=== PATIENT | male | born 1955 | race Hispanic/Latino ===

== ENCOUNTER 2018-06-30 07:31 | Observation (INO) | payer SELFPAY ==
[2018-06-30 07:52] LABS: #Lymphocytes 1.8 thou/uL (1.20-3.40); #Monocytes 0.3 thou/uL (0.11-0.59); #Neutrophils 4.9 thou/uL (1.40-6.50); %Basophils 0.1 % (0.0-1.0); %Eosinophils 0.4 % (0.0-10.0); %Lymphocytes 25.1 % (21.0-51.0); %Monocytes 4.9 % (0.0-10.0); %Neutrophils 69.6 % (42.0-75.0); Hemoglobin 9.1 g/dL (14.0-18.0); Mean Corpuscular HGB CONC 33.4 g/dL (32.0-36.0); Mean Corpuscular Hemoglobin 30.8 pg (27.0-31.0); Mean Corpuscular Volume 92.2 fL (78.0-98.0); Mean Platelet Volume 8.6 fL (7.4-10.4); Platelet Count 180 thou/uL (130-400); RBC Distribution Width 11.9 % (11.5-14.5); Red Blood Cell (RBC) Count 2.96 mill/uL (4.70-6.10); White Blood Cell (WBC) Count 7.1 thou/uL (4.8-10.8)
[2018-06-30 08:16] LABS: ALT (SGPT) 11 U/L (8-55); AST (SGOT) 12 U/L (5-34); Albumin 3.5 g/dL (3.4-4.8); Alkaline Phosphatase 44 U/L (40-150); Anion Gap 10 mmol/L (10-20); BUN (Urea Nitrogen) 48 mg/dL (8.4-25.7); Bilirubin, Total 0.4 mg/dL (0.2-1.2); Calc. Creatinine Clearance 0 mL/min (70-130); Calcium 8.7 mg/dL (7.8-10.44); Carbon Dioxide 26 mmol/L (23-31); Chloride 105 mmol/L (98-107); Estimated GFR-MDRD 64; Globulin 2.4 g/dL (2.4-3.5); Glucose 293 mg/dL (80-115); Potassium 4.7 mmol/L (3.5-5.1); Protein, Total 5.9 g/dL (5.8-8.1); Sodium 136 mmol/L (136-145)
--- NOTE | 2018-06-30 08:52 | RAD ---
PORTABLE CHEST: HISTORY: Syncope. FINDINGS: Heart size and mediastinum are within normal limits. Lungs are clear of infiltrates. No significant bony findings. IMPRESSION: No active intrathoracic disease. POS: [facility]
[2018-06-30 09:57] LABS: Bilirubin Negative (Negative); Blood, Urine Negative (Negative); Clarity CLEAR (Clear); Glucose, Urine (Dipstick) >=1000 mg/dL (Negative); Leukocyte Negative (Negative); Nitrite Negative (Negative); Protein, Urine (Dipstick) Negative (Neg-Trace); Urobilinogen 0.2 mg/dL (0.2-1.0); pH, Urine 5.5 (5.0-9.0)
--- NOTE | 2018-06-30 11:54 | PDOC.FPRHP ---
- History of Present Illness Chief Complaint: Syncope History of Present Illness: 62 yo male presents for evaluation after multiple falls at home. His states that he got up in the middle of the night to use the bathroom. She then heard some noise and found him on the ground "all sweaty." She got him back to bed and checked his glucose which was 309. She then gave him insulin and a tall glass of water. She states that he did not want to go to the doctor and wanted to go to work. He was able to get up and get ready for work, but as he was about to leave he stood up and fell backward again. She then called her daughter to help him get up and they called EMS. Patient was in his normal state of health up until last night. He denied chest pain, sob, unilateral weakness, headaches, or n/v/d. No other complaints. ED Course: 3L NS - Allergies/Adverse Reactions Allergies Allergy/AdvReac Type Severity Reaction Status Date / Time No Known Drug Allergies Allergy Unknown Verified 11/10/12 04:39 - Home Medications Medication Instructions Recorded Confirmed Type Insulin NPH Hum/Reg Insulin HM 40 unit SC BID- 10/23/14 06/30/18 History [Novolin 70/30] Lisinopril 20 mg PO DAILY 10/23/14 06/30/18 History Pravastatin Sodium 40 mg PO 10/23/14 06/30/18 History glipiZIDE [glipiZIDE ER] 5 mg PO QAM- 10/23/14 06/30/18 History metFORMIN HCl 1,000 mg PO BID- 10/23/14 06/30/18 History - History PMHx: Type II DM, HTN, HLD PSHx: NONE FHx: Diabetes Social: Denies alcohol or drug use. Patient is an occasional tobacco user. - Review of Systems General: denies: fever/chills, weight/appetite/sleep changes Eyes: denies: eye pain, vision changes ENT: denies: nasal congestion, rhinorrhea Respiratory: denies: cough, shortness of breath Cardiovascular: denies: chest pain, palpitation Gastrointestinal: denies: nausea, vomiting, diarrhea, constipation Skin: denies: rashes, lesions Musculoskeletal: denies: pain, tenderness, stiffness, swelling, arthritis/ arthralgias Neurological: reports: syncope, weakness. denies: numbness, seizure Psychological: denies: anxiety, depression - Vital signs BP: 129/62 HR: 85 RR: 16 Tmax: 98.0 Pox: 99% on RmAir Wt: 98.88 kg - Physical Exam Constitutional: NAD, awake, alert and oriented HEENT: normocephalic and atraumatic, PERRLA, grossly normal vision, TM's clear and intact, grossly normal hearing, normal nasal mucosa, MMM, oropharynx clear Neck: supple, trachea midline Chest: no-tender to palpation Heart: RRR, normal S1/S2, no murmurs/rubs/gallops Lungs: CTAB, no respiratory distress, good air movement, no wheezing Abdomen: soft, bowel sounds present, no masses/distention -Abdomen: mildly tender to RLQ Musculoskeletal: normal structure, normal tone Neurological: no focal deficit, CN II-XII intact, normal sensation Skin: no rash/lesions, good turgor, capillary refill <2 seconds Heme/Lymphatic: no unusual bruising or bleeding, no purpura Psychiatric: normal mood and affect, good judgment and insight, intact recent and remote memory FMR H&P: Results - Labs Result Diagrams: 06/30/18 07:45 06/30/18 07:45 Lab results: WBC 7.1 thou/uL (4.8-10.8) 06/30/18 07:45 Hgb 9.1 g/dL (14.0-18.0) L 06/30/18 07:45 Hct 27.3 % (42.0-52.0) L 06/30/18 07:45 MCV 92.2 fL (78.0-98.0) 06/30/18 07:45 Plt Count 180 thou/uL (130-400) 06/30/18 07:45 Neutrophils % 69.6 % (42.0-75.0) 06/30/18 07:45 Sodium 136 mmol/L (136-145) 06/30/18 07:45 Potassium 4.7 mmol/L (3.5-5.1) 06/30/18 07:45 Chloride 105 mmol/L (98-107) 06/30/18 07:45 Carbon Dioxide 26 mmol/L (23-31) 06/30/18 07:45 BUN 48 mg/dL (8.4-25.7) H 06/30/18 07:45 Creatinine 1.15 mg/dL (0.7-1.3) 06/30/18 07:45 Glucose 293 mg/dL (80-115) H 06/30/18 07:45 Calcium 8.7 mg/dL (7.8-10.44) 06/30/18 07:45 Total Bilirubin 0.4 mg/dL (0.2-1.2) 06/30/18 07:45 AST 12 U/L (5-34) 06/30/18 07:45 ALT 11 U/L (8-55) 06/30/18 07:45 Alkaline Phosphatase 44 U/L (40-150) 06/30/18 07:45 B-Natriuretic Peptide Less than 10.0 pg/mL (0-100) 06/30/18 07:45 Serum Total Protein 5.9 g/dL (5.8-8.1) 06/30/18 07:45 Albumin 3.5 g/dL (3.4-4.8) 06/30/18 07:45 Urine Ketones 15 mg/dL (Negative) H 06/30/18 Unknown Urine Blood Negative (Negative) 06/30/18 Unknown Urine Nitrite Negative (Negative) 06/30/18 Unknown Ur Leukocyte Esterase Negative (Negative) 06/30/18 Unknown - EKG Interpretation EK lead EKG shows normal sinus rhythm, Rate (beats per minute): 80, with no ectopics, Conduction normal, ST segments normal, T waves normal, [place] normal. 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 (4) Hyperlipidemia Current Visit: No Status: Chronic Code(s): E78.5 - HYPERLIPIDEMIA, UNSPECIFIED (5) Hypertension Current Visit: No Status: Chronic Code(s): I10 - ESSENTIAL (PRIMARY) HYPERTENSION - Plan (1) Autonomic neuropathy - Likely secondary to DM - Orthostatic vital signs in ED positive - IVF - Fall precautions (2) Syncope - Likely secondary to above - CT head WO contrast pending - ECHO pending - Fall precautions (3) Type 2 diabetes mellitus treated with insulin - Last HgbA1c in clinic in 12/2017 was 9.0 - Accuchecks - Continue home regimen - Will need close outpatient follow up (4) Hyperlipidemia - Continue home meds (5) Hypertension - Hold home meds for now - Will monitor BP for re-initation as needed. CODE STATUS: FULL CODE PCP: Dr. Wilmar Lombardo, Disposition: Stable, will admit to Telemetry Observation for further evaluation.
--- NOTE | 2018-06-30 12:56 | HP ---
I have examined the patient. I have discussed the case with Dr. Jimmy Montes De Oca and agree with his assessment and plan. HISTORY OF PRESENT ILLNESS: Mr. Waller is a pleasant 62-year-old man with an at least 20 year history of type 2 diabetes. He got up during the night to go the restroom when he had a presyncopal episode. His heard him fall and found him on the ground, "all sweaty." His glucose at that time was 309. He felt better and wanted to go to work the next day. He again was rising to get up to go to work when he again had another syncopal or presyncopal episode lasting a few seconds. EMS was called, he was transported to the ER. I examined him there later. PHYSICAL EXAMINATION: GENERAL: When I examined the patient, he was awake, alert, no acute distress. VITAL SIGNS: His blood pressure was normal. Pulse rate normal. He was awake, oriented. EAR, NOSE, AND THROAT: No erythema or exudate. NECK: Supple. CARDIAC: Heart rhythm regular. No gallop or murmur noted. LUNGS: Clear. No rales or wheezes. ABDOMEN: Flat, soft without guarding or rebound. NEUROLOGIC: He had no focal deficits. LABORATORY DATA: He does have an anemia with a hemoglobin of 9.1, hematocrit 27.3, and MCV of 92. Chemistries, BMP shows a sodium 136, potassium 4.7, chloride 105, bicarb 26, BUN 48, creatinine 1.15, glucose was 293. Troponin less than 0.01. ASSESSMENT: 1. Syncope versus presyncope. 2. He also was positive with orthostatic checks of blood pressure dropping to 81 standing, from sitting of 130. 3. Presyncope likely secondary to orthostatic hypotension secondary to long-standing diabetes and possible autonomic neuropathy. Also anemia was a contributing factor and this needs to be worked up as well. We will admit, monitor, check echo and proceed. Job ID: [id number]
--- NOTE | 2018-06-30 15:57 | CT ---
CT BRAIN: HISTORY: Syncope. Loss of consciousness. FINDINGS: Noncontrast-enhanced CT images of the brain are obtained from the base of the skull through the verte x. Brain and bone windows obtained. CT images demonstrate no evidence of intracranial masses, hemorrhages, strokes, or contusions. Ventr icles are of normal size. IMPRESSION: No evidence of acute intracranial abnormality is seen. POS: [facility]
[2018-06-30] MEDS ORDERED: Ondansetron ODT 4 MG TAB SL PRN (17:57)
[2018-06-30] MEDS ORDERED: Acetaminophen 325 MG TAB PO PRN ×2 (17:57→18:07)
[2018-06-30] MEDS ORDERED: Ondansetron PF 4 MG/2 ML Vial IVP PRN (17:57)
[2018-06-30] MEDS ORDERED: Sodium Chloride 0.9% 1,000 ML IV SCH (17:57)
[2018-06-30] MEDS ORDERED: Ondansetron ODT 4 MG TAB PO PRN (18:07)
[2018-06-30] MEDS ORDERED: Dextrose 5% in Water 1,000 ML IV PRN (18:07)
[2018-06-30] MEDS ORDERED: Dextrose 50% Abboject 50 ML SYRINGE SLOW IVP PRN (18:07)
[2018-06-30] MEDS ORDERED: metFORMIN 500 MG TAB PO SCH (18:15)
[2018-06-30] MEDS ORDERED: HumuLIN 70/30 (300 UNITS/3 ML VIAL) SC SCH (18:15)
[2018-06-30 18:25] VITALS: BMI 27.6
[2018-06-30] MEDS: Sodium Chloride 0.9% 1,000 ML IV SCH (18:46)
[2018-06-30] MEDS ORDERED: Atorvastatin Calcium 10 MG TAB PO SCH (21:00)
[2018-07-01] MEDS: Sodium Chloride 0.9% 1,000 ML IV SCH ×4 (00:24→21:34)
[2018-07-01 05:25] LABS: Anion Gap 8 mmol/L (10-20); BUN (Urea Nitrogen) 22 mg/dL (8.4-25.7); Calc. Creatinine Clearance 109 mL/min (70-130); Calcium 8.4 mg/dL (7.8-10.44); Carbon Dioxide 24 mmol/L (23-31); Cardiac Risk 4.3 (Less than 4.5); Chloride 113 mmol/L (98-107); Cholesterol 94 mg/dl (< 200 Desired); Estimated GFR-MDRD 81; Glucose 87 mg/dL (80-115); HDL Cholesterol 22 mg/dL (>60 Neg Risk); LDL Cholesterol, Calculated 51 mg/dL; Potassium 4.1 mmol/L (3.5-5.1); Sodium 141 mmol/L (136-145); Triglycerides 106 mg/dL (Less than 150)
--- NOTE | 2018-07-01 06:48 | PDOC.FM ---
- Subjective Subjective: Feeling well this morning. No more episodes of syncope. Denies dizziness, lightheadedness, chest pain. - Objective MAR Reviewed: Yes Vital Signs & Weight: Vital Signs (12 hours) Temp Pulse Resp BP Pulse Ox 07/01/18 03:53 98.7 F 87 16 116/55 L 97 07/01/18 00:00 99.1 F 91 16 149/67 H 97 06/30/18 20:00 99.0 F 99 18 157/70 H 96 Weight Weight 94.801 kg I&O: 06/29/18 06/30/18 07/01/18 06:59 06:59 06:59 Intake Total 480 Output Total 700 Balance -220 Result Diagrams: 06/30/18 07:45 07/01/18 04:40 Dx/Plan (1) Autonomic neuropathy Code(s): G90.9 - DISORDER OF THE AUTONOMIC NERVOUS SYSTEM, UNSPECIFIED Status : Acute (2) Syncope Code(s): R55 - SYNCOPE AND COLLAPSE Status: Acute (3) Type 2 diabetes mellitus treated with insulin Code(s): E11.9 - TYPE 2 DIABETES MELLITUS WITHOUT COMPLICATIONS; Z79.4 - RETIREMENT (CURRENT) USE OF INSULIN Status: Acute (4) Vasovagal syncope Code(s): R55 - SYNCOPE AND COLLAPSE Status: Acute (5) Hyperlipidemia Code(s): E78.5 - HYPERLIPIDEMIA, UNSPECIFIED Status: Chronic (6) Hypertension Code(s): I10 - ESSENTIAL (PRIMARY) HYPERTENSION Status: Chronic - Plan Plan: Autonomic neuropathy - Likely secondary to DM - Orthostatic vital signs in ED positive, s/p IVF Syncope - Likely secondary to above - CT: no acute abnormalities - Echo pending Normocytic Anemia - Will obtain iron studies as pt Hgb 9.1 DMII on insulin - A1c 12/2017: 9% - Accuchecks ACHS, CC diet - Continue home Lantus 40U BID, Metformin - Hypoglycemic protocol HLD - ASCVD risk: 31.9% if Total Chol calc with 130. - Will increase to high intensity statin HTN - Restarted home Lisinopril Code Status: FULL DVT ppx: SCDs PCP: [facility] ([place])
[2018-07-01 09:13] LABS: Iron 53 ug/dL (65-175); Iron Binding Capacity, Total 210 mcg/dL (261-462)
[2018-07-01] MEDS: Lisinopril 10 MG TAB PO SCH (10:13)
[2018-07-01] MEDS: Multivit, Therapeutic 1 TAB PO SCH (10:13)
[2018-07-01] MEDS: metFORMIN 500 MG TAB PO SCH ×2 (10:13→17:40)
[2018-07-01] MEDS: Aspirin 81 mg Enteric Coated Tablet PO SCH (10:13)
[2018-07-01] MEDS: HumuLIN 70/30 (300 UNITS/3 ML VIAL) SC SCH ×2 (10:14→17:40)
[2018-07-01] MEDS ORDERED: Polyethylene Glycol 3350 17 GM Packet PO PRN (11:07)
--- NOTE | 2018-07-01 12:54 | PRG ---
DATE OF SERVICE: 07/01/2018 Mr. Waller is admitted with a couple of presyncopal episodes. He has been asymptomatic since admission. He is noted to have hemoglobin of 9.1. We will initiate an anemia workup as well. He had profound orthostatic changes and I suspect this was the etiology of his presyncopal episodes. He will be given instructions on dealing with this issue such as rising from a sitting position in a slow manner, particularly at night. His workup so far is negative and we are awaiting again the results of an echocardiogram. His serum electrolytes were normal with GFR of 81. Iron studies thus far consistent with anemia of chronic disease. Ferritin is normal at 46. Job ID: [id number]
[2018-07-01 15:13] LABS: Band 2 % (5-11); Hemoglobin 7.7 g/dL (14.0-18.0); Lymphocytes 13 % (21-51); MDiff Complete? YES; Mean Corpuscular HGB CONC 33.1 g/dL (32.0-36.0); Mean Corpuscular Hemoglobin 30.9 pg (27.0-31.0); Mean Corpuscular Volume 93.5 fL (78.0-98.0); Mean Platelet Volume 8.8 fL (7.4-10.4); Monocytes 4 % (0-10); Neutrophil 81 % (42-75); Platelet Count 174 thou/uL (130-400); Platelet Morphology Comment Appears Adequate; RBC Distribution Width 12.3 % (11.5-14.5); White Blood Cell (WBC) Count 7.1 thou/uL (4.8-10.8)
[2018-07-01] MEDS ORDERED: Atorvastatin Calcium 40 MG TAB PO SCH (21:00)
[2018-07-02] MEDS: Sodium Chloride 0.9% 1,000 ML IV SCH ×2 (04:06→09:00)
--- NOTE | 2018-07-02 06:26 | PDOC.FM ---
- Subjective Subjective: Reports symptomatic hypoglycemia overnight. Resolved with peanut butter and crackers. Denies dizziness, lightheadedness. Reports snoring at night. - Objective MAR Reviewed: Yes Vital Signs & Weight: Vital Signs (12 hours) Temp Pulse Resp BP BP Pulse Ox 07/02/18 04:00 98.6 F 87 20 121/60 97 07/01/18 23:15 98.2 F 91 14 118/55 L 96 07/01/18 18:30 98.6 F 88 15 138/65 97 Weight Weight 97.885 kg I&O: 06/30/18 07/01/18 07/02/18 06:59 06:59 06:59 Intake Total 480 5880 Output Total 700 625 Balance -220 5255 Result Diagrams: 07/01/18 14:20 07/01/18 04:40 Phys Exam - Physical Examination Constitutional: NAD HEENT: moist MMs Neck: supple Respiratory: no wheezing, clear to auscultation bilateral Cardiovascular: RRR, no significant murmur Gastrointestinal: soft, non-tender, positive bowel sounds Musculoskeletal: no edema Neurological: moves all 4 limbs Psychiatric: normal affect, A&O x 3 Skin: normal turgor Dx/Plan (1) Autonomic neuropathy Code(s): G90.9 - DISORDER OF THE AUTONOMIC NERVOUS SYSTEM, UNSPECIFIED Status : Acute (2) Syncope Code(s): R55 - SYNCOPE AND COLLAPSE Status: Acute (3) Type 2 diabetes mellitus treated with insulin Code(s): E11.9 - TYPE 2 DIABETES MELLITUS WITHOUT COMPLICATIONS; 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 Mod mitral regurg Anemia of Chronic Disease - Hgb 9.1 - Iron studies support - B12 & folate wnl DMII on insulin - A1c 12/2017: 9% - Accuchecks ACHS, CC diet - Continue home Lantus 40U BID, Metformin - Discontinue home glipizide - Hypoglycemic protocol HLD - ASCVD risk: 31.9% if Total Chol calc with 130. - Continue high intensity statin, started 07/01 HTN - Continue home Lisinopril Concern for KRISTEL - Recommend outpt sleep study Code Status: FULL DVT ppx: SCDs PCP: [facility] ([place])
[2018-07-02 08:49] VITALS: BP 120/59; TEMP 98.1
[2018-07-02] MEDS: Aspirin 81 mg Enteric Coated Tablet PO SCH (09:00)
[2018-07-02] MEDS: metFORMIN 500 MG TAB PO SCH (09:00)
[2018-07-02] MEDS: Multivit, Therapeutic 1 TAB PO SCH (09:00)
[2018-07-02] MEDS: Lisinopril 10 MG TAB PO SCH (09:00)
[2018-07-02] MEDS: HumuLIN 70/30 (300 UNITS/3 ML VIAL) SC SCH (09:00)
--- NOTE | 2018-07-02 12:09 | PRG ---
DATE OF SERVICE: 07/02/2018 SUBJECTIVE: Mr. Black is sitting in bed quietly in no distress. His workup for presyncope does demonstrate orthostatic changes likely related to diabetic autonomic neuropathy. We have given him instructions about changing positions slowly. We also found a normocytic normochromic mild anemia, which will be continued to worked up as an outpatient. Preliminary testing reveals it to be an anemia of chronic disease. His ferritin level was normal at 46. His hemoglobin on admission was 9.1 with hematocrit of 27.3. B12 was slightly low at 230 and we may need to follow this up with a methylmalonic acid. Folate was normal at 17. Job ID: [id number]
--- NOTE | 2018-07-03 01:53 | DIS ---
DATE OF ADMISSION: 06/30/2018 DATE OF DISCHARGE: 07/02/2018 RESIDENT: Ritu Candelaria MD, PGY-1. CONSULTS: None. PROCEDURES: 1. Chest x-ray, no acute intrathoracic process. 2. Brain CT, no evidence of acute intracranial abnormality is seen. 3. Echocardiogram, ejection fraction of 55% to 60%. The left atrium is mildly dilated. Moderate mitral regurgitation. Mild tricuspid regurgitation. PRIMARY DIAGNOSIS: Syncope, secondary to autonomic neuropathy. SECONDARY DIAGNOSES: 1. Anemia of chronic disease. 2. Insulin-dependent type 2 diabetes. 3. Hyperlipidemia. 4. Hypertension. 5. Obstructive sleep apnea. DISCHARGE MEDICATIONS: 1. Aspirin 81 mg daily. 2. Atorvastatin 40 mg at bedtime. 3. Glucagon 1 mg IM p.r.n. 4. Humulin 70/30 30 units subcu b.i.d. 5. Lisinopril 10 mg daily. 6. Metformin 1000 mg b.i.d. 7. Theragran 1 tablet p.o. daily. 8. MiraLAX 17 g p.o. daily p.r.n. DISCONTINUE MEDICATION: Glipizide. HISTORY OF PRESENT ILLNESS/HOSPITAL COURSE: Mr. Waller is a 62-year-old male who presented to the ED for 2 syncopal events. His initially thought he was hypoglycemic, but glucose was 309. He had positive orthostatics in the ED, systolic dropped from 130 in supine position to 80 standing. He was given 3 L normal saline in the ED. His syncope is secondary to autonomic neuropathy secondary to his uncontrolled diabetes. His last hemoglobin A1c in clinic was in 12/2017 at 9%. He is on 70/30 at home 50 units b.i.d. Initial labs notable for hyperglycemia at 293. Troponin and BNP negative. Workup including CT and echo were unremarkable. He was noted to have normocytic anemia with a hemoglobin of 9.1. Iron studies reported anemia of chronic disease, it is likely secondary to his type 2 diabetes. In regard to his type 2 diabetes, he was continued on home dose 70/ 30, but decreased to 40 b.i.d. He had multiple hypoglycemic episodes. This was decreased further to 30 units b.i.d., recommended to continue 30 units b.i.d. and check blood sugars frequently. Once the patient resumes home diet, he may need to require his home dose. He needs to follow up outpatient with at [facility] to closely monitor this. Recommended keeping a glucose log. His ASCVD risk was noted to be 31.9%. I increased his statin to high-intensity. Glyburide was discontinued due to hypoglycemic episodes. We would recommend managing patient without this medication. Hypertension was managed with home medication. The patient reported long history of snoring and he could benefit from a sleep study outpatient. DISPOSITION: Stable. DISCHARGE INSTRUCTIONS: LOCATION: Home. DIET: Consisting carb. ACTIVITY: No restrictions. FOLLOWUP: Follow up with Dr. Lombardo at [facility] within 7 days. Job ID: [id number] [facility]
--- NOTE | 2018-07-03 12:03 | EKG ---
Test Reason : Blood Pressure : / mmHG Vent. Rate : 080 BPM Atrial Rate : 080 BPM P-R Int : 148 ms QRS Dur : 102 ms QT Int : 374 ms P-R-T Axes : 060 053 032 degrees QTc Int : 431 ms Normal sinus rhythm Normal ECG Confirmed by BENITO PEREZ DO ([id number]), manuscript editor DEBBI SALAZAR ([id number]) on 07/03/2018 12:02:40 PM Referred By: Confirmed By:BENITO PEREZ DO
== END 2018-07-02 12:49 | disposition home or self-care (01) ==
LOC: ERS 07:31 → ERHOLD 10:59 → 2SW 18:03
PROVIDERS: ADMIT Family Medicine; ATTEND Family Medicine
DX: E11.43 Type 2 diabetes mellitus with diabetic autonomic (poly)neuropathy (principal); E78.5 Hyperlipidemia, unspecified; I10 Essential (primary) hypertension; G47.33 Obstructive sleep apnea (adult) (pediatric); D63.8 Anemia in other chronic diseases classified elsewhere; Z79.4 Long term (current) use of insulin; Z79.82 Long term (current) use of aspirin; Z79.899 Other long term (current) drug therapy
CPT/HCPCS: 36415; 36416; 70450; 71045; 80048; 80053; 80061; 81003; 82607; 82728; 82746; 83540; 83550; 83880; 84484; 85007; 85025; 85027; 85046; 85060; 93005; 96360; 96361; G0378; J1815

== ENCOUNTER 2019-10-05 00:37 | Emergency (ER) | payer SELFPAY ==
[2019-10-05] MEDS ORDERED: Lidocaine 1% w/Epinephrine 1:100K 20 ML VIAL ONE (00:53)
[2019-10-05 01:07] LABS: #Basophils 0.1 thou/uL (0.0-0.2); #Eosinphils 0.2 thou/uL (0.0-0.7); #Lymphocytes 2.9 thou/uL (1.20-3.40); #Monocytes 0.6 thou/uL (0.11-0.59); #Neutrophils 4.3 thou/uL (1.40-6.50); %Basophils 1.2 % (0.0-1.0); %Eosinophils 2.3 % (0.0-10.0); %Lymphocytes 35.9 % (21.0-51.0); %Monocytes 6.9 % (0.0-10.0); %Neutrophils 53.6 % (42.0-75.0); Hemoglobin 12.5 g/dL (14.0-18.0); Mean Corpuscular HGB CONC 33.9 g/dL (32.0-36.0); Mean Corpuscular Hemoglobin 31.9 pg (27.0-31.0); Mean Corpuscular Volume 94.3 fL (78.0-98.0); Mean Platelet Volume 10.1 fL (7.4-10.4); Platelet Count 180 thou/uL (130-400); RBC Distribution Width 11.5 % (11.5-14.5); Red Blood Cell (RBC) Count 3.92 mill/uL (4.70-6.10); White Blood Cell (WBC) Count 8.1 thou/uL (4.8-10.8)
[2019-10-05 01:23] LABS: ALT (SGPT) 17 U/L (8-55); AST (SGOT) 15 U/L (5-34); Albumin 4.4 g/dL (3.4-4.8); Alkaline Phosphatase 75 U/L (40-110); Anion Gap 14 mmol/L (10-20); BUN (Urea Nitrogen) 30 mg/dL (8.4-25.7); Bilirubin, Total 0.4 mg/dL (0.2-1.2); Calc. Creatinine Clearance 0 mL/min (70-130); Calcium 9.4 mg/dL (7.8-10.44); Carbon Dioxide 23 mmol/L (23-31); Chloride 104 mmol/L (98-107); Estimated GFR-MDRD 47; Globulin 3.4 g/dL (2.4-3.5); Glucose 190 mg/dL (80-115); Protein, Total 7.8 g/dL (5.8-8.1); Sodium 137 mmol/L (136-145)
[2019-10-05] MEDS ORDERED: Triple Antibiotic Oint 1 GM Packet ONE (02:48)
--- NOTE | 2019-10-05 07:10 | CT ---
PRELIMINARY REPORT/[facility]/EMERGENCY AFTER HOURS PROCEDURE: EXAM: CT Cervical Spine Without Intravenous Contrast. CLINICAL HISTORY: M64, pt woke up and went to the bathroom and got dizzy and fell and hit his head. lac to R eyebrow 1. 5 inch pt reports last time this happened his sugar was low TECHNIQUE: Axial computed tomography images of the cervical spine without intravenous contrast. Sagittal and cor onal reformations performed. COMPARISON: CT head 10/05/2019. FINDINGS: BONES: No acute fracture or focal osseous lesion. 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 Bony alignment is anatomic. DISCS / DEGENERATIVE CHANGES: Multilevel mild uncovertebral joint hypertrophy and bilateral facet arthrosis. No significant osseou s spinal canal stenosis or neuroforaminal narrowing. SOFT TISSUES: No prevertebral soft tissue swelling. No apical pneumothorax. Dystrophic calcification within the po sterior soft tissues at C5. Right thyroid lobe 1.9 cm nodule. Left thyroid lobe 2.0 cm nodule. IMPRESSION: 1. No acute cervical spine abnormality. 2. Mild cervical spondylosis; not abnormal for age. 3. Bilateral thyroid nodules. ELECTRONICALLY SIGNED BY: Neil Reeves M.D. Oct 05, 2019 1:49:21 AM CDT This report is intended for review by the ordering physician only, in accordance of law. If you recei ve this report in error, please call [facility] at [phone]. FINAL REPORT EMERGENCY AFTER HOURS CT CERVICAL SPINE WITHOUT CONTRAST: Date: 10/05/2019 FINDINGS/IMPRESSION: I agree with the findings and impression given in the preliminary report per [facility] physici an. No evidence of acute osseous abnormality of the cervical spine. POS: [facility]
--- NOTE | 2019-10-05 07:12 | CT ---
PRELIMINARY REPORT/[facility]/EMERGENCY AFTER HOURS PROCEDURE: EXAM: CT Head Without Intravenous Contrast. CLINICAL HISTORY: M64, pt woke up and went to the bathroom and got dizzy and fell and hit his head. lac to R eyebrow 1. 5 inch pt reports last time this happened his sugar was low TECHNIQUE: Axial computed tomography images of the head/brain without intravenous contrast. COMPARISON: CT\SR - CT BRAIN WO CON - 06/30/2018 03:15 PM CDT FINDINGS: BRAIN: No acute intraparenchymal hemorrhage. No mass lesion. No CT evidence for acute territorial infarct. N o midline shift or extra-axial collection. VENTRICLES: No hydrocephalus. ORBITS: The orbits are unremarkable. SINUSES AND MASTOIDS: Mucosal thickening within the right maxillary sinus. The paranasal sinuses and mastoid air cells are otherwise clear. SOFT TISSUES: Soft tissue laceration with right supraorbital swelling. No radiopaque foreign body is seen. BONES: No acute skull fracture. IMPRESSION: 1. Right supraorbital soft tissue laceration with swelling. 2. No acute intracranial abnormality. ELECTRONICALLY SIGNED BY: Neil Reeves M.D. Oct 05, 2019 1:44:43 AM CDT This report is intended for review by the ordering physician only, in accordance of law. If you recei ve this report in error, please call [facility] at [phone]. FINAL REPORT EMERGENCY AFTER HOURS CT BRAIN WITHOUT CONTRAST: Date: 10/05/2019 FINDINGS/IMPRESSION: I agree with the findings and impression given in the preliminary report per [facility] physici an. No evidence of acute intracranial abnormality. POS: [facility]
--- NOTE | 2019-10-05 07:37 | RAD ---
EXAM: Single view of the chest HISTORY: Fall and dizziness COMPARISON: 06/30/2018 FINDINGS: Single view of the chest shows a normal sized cardiomediastinal silhouette. There is no arnaldo dence of consolidation, mass, or pleural effusion. The bones are unremarkable. IMPRESSION: No evidence of acute cardiopulmonary disease
--- NOTE | 2019-10-05 07:47 | RAD ---
EXAM: 3 views of the right shoulder HISTORY: Shoulder pain after fall COMPARISON: None FINDINGS: There is no evidence of acute fracture or dislocation. No degenerative changes are present. No soft tissue swelling is seen. The visualized thorax is unremarkable. IMPRESSION: No evidence of acute osseous abnormality.
--- NOTE | 2019-10-08 11:02 | EKG ---
Test Reason : Blood Pressure : / mmHG Vent. Rate : 065 BPM Atrial Rate : 065 BPM P-R Int : 130 ms QRS Dur : 092 ms QT Int : 396 ms P-R-T Axes : 052 059 028 degrees QTc Int : 411 ms Normal sinus rhythm Normal ECG Confirmed by GUERO ENG DO ([id number]), editorial specialist DEBBI SALAZAR ([id number]) on 10/08/2019 11:01:55 AM Referred By: Confirmed By:GUERO ENG DO
== END 2019-10-05 02:58 | disposition home or self-care (01) ==
LOC: ERS 00:37
DX: R55 Syncope and collapse (principal); S01.81XA Laceration without foreign body of other part of head, initial encounter; M25.511 Pain in right shoulder; E11.9 Type 2 diabetes mellitus without complications; I10 Essential (primary) hypertension; E78.5 Hyperlipidemia, unspecified; F17.210 Nicotine dependence, cigarettes, uncomplicated; Z79.899 Other long term (current) drug therapy; Z79.4 Long term (current) use of insulin; Z23 Encounter for immunization; W18.30XA Fall on same level, unspecified, initial encounter; Y92.091 Bathroom in other non-institutional residence as the place of occurrence of the external cause
CPT/HCPCS: 12011; 36415; 70450; 71045; 72125; 80053; 84484; 85025; 93005; 96360

== ENCOUNTER 2019-11-01 13:40 | Emergency (ER) | payer SELFPAY ==
[2019-11-01] MEDS ORDERED: Lidocaine 1% PF 5 ML VIAL ONE (15:52)
== END 2019-11-01 16:47 | disposition home or self-care (01) ==
LOC: ERS 13:40
DX: S81.011A Laceration without foreign body, right knee, initial encounter (principal); W01.0XXA Fall on same level from slipping, tripping and stumbling without subsequent striking against object, initial encounter
CPT/HCPCS: 12002